=== PATIENT | male | born 1940 | race Caucasian/White ===

== ENCOUNTER 2016-10-23 00:41 | Outpatient (CLI) | payer MEDICARE, OTHER | END 2016-10-23 00:42 | disposition short-term general hospital (02) | DX: T21.31XA Burn of third degree of chest wall, initial encounter (principal); T22.331A Burn of third degree of right upper arm, initial encounter; F17.210 Nicotine dependence, cigarettes, uncomplicated; W36.2XXA Explosion and rupture of air tank, initial encounter; Y92.003 Bedroom of unspecified non-institutional (private) residence as the place of occurrence of the external cause | CPT/HCPCS: A0425; A0427; A0888 ==